=== PATIENT | female | born 1940 | race Caucasian/White ===

== ENCOUNTER 2016-12-02 12:35 | Inpatient (IN) | payer OTHER, MEDICARE ==
[2016-12-02 14:35] LABS: % IMMATURE GRANULYOCYTES 0.5 % (0.0-1.1); ABSOLUTE IMMATURE GRANULOCYTES 0.05 10^3/uL (0.00-0.10); ADD DIFF? NO; ADD MORPH? NO; ADD SCAN? NO; ATYPICAL LYMPHOCYTE FLAG 30 (0-99); FRAGMENT RBC FLAG 0 (0-99); HEMATOCRIT 52.4 % (38.0-47.0); HEMOGLOBIN 17.8 g/dL (12.6-16.3); LEFT SHIFT FLG 0 (0-99); LIPEMIA HEMOLYSIS FLAG 90 (0-99); MEAN CELL HEMOGLOBIN 31.7 pg (27.9-34.1); MEAN CELL VOLUME 93.2 fL (81.5-99.8); MEAN PLATELET VOLUME 9.9 fL (8.7-11.7); PLATELET CLUMPS FLAG 10 (0-99); PLATELET COUNT 356 10^3/uL (150-400); RED BLOOD CELL COUNT 5.62 10^6/uL (4.18-5.33); RED CELL DISTRIBUTION WIDTH 12.9 % (11.5-15.2)
[2016-12-02] MEDS ORDERED: NS 1,000 ML IV ONE (14:45)
--- NOTE | 2016-12-02 14:50 | EDPHY ---
HPI/HX/ROS/PE/MDM Narrative: CHIEF COMPLAINT: Weakness HPI: The patient is a 76-year-old female, who comes to the ED with acute weakness. According to the patient's daughter, the patient has been more weak than per usual. She does a lot of hard yard work, but has been too weak to work. Within the past few days the patient developed a left sided facial droop. Patient is unable to speak, she only answers "yeah" and "I don't know". Daughter attributes patient's symptoms to dehydration. She states the patient has decreased appetite lately, she has not been eating or drinking accordingly. There is no clear time of onset of any of her symptoms, and they have been present for at least several days. REVIEW OF SYSTEMS: ROS is limited, patient is unable to answer questions appropriately. PMH: Denies. SOCIAL HISTORY: Daughter at bedside. PHYSICAL EXAM: General: Patient is alert, Cachectic appearing. ENT: Eyes are normal to inspection. ENT inspection normal. Neck: Normal inspection. Full range of motion. Respiratory: No respiratory distress. Breath sounds normal bilaterally. Cardiovascular: Regular rate and rhythm. Strong peripheral pulses. Abdomen: The abdomen is nontender to palpation. There are no peritoneal signs. There are normal bowel sounds. Back: Normal to inspection. No tenderness to palpation. Skin: Normal color. No rash. Warm and dry. Extremities: Normal appearance. Full range of motion. Neuro: Left sided facial droop, No pronator drift, Only says "yeah" and "I don' t know", Not oriented to the year. Follows commands. ED Course: Patient presents with altered mental status for unknown amount of time. Patient has left sided facial droop. History and exam are limited, pt is unable to answer questions. Plan for CT head. I spoke with the radiologist, CT head reveals intracranial lesions consistent with metastases. 1530: I consulted Dr. Calvillo, Neurosurgery. 1540: I spoke to the hospitalist team, the patient will be admitted to Dr. Beltran. MRI brain ordered. MDM: This patient presents with facial droop, expressive aphasia and is unfortunately found to have at least two large brain masses with some edema and shift. She requires admission for further evaluation and treatment. I see no signs of sepsis, CVA, pneumonia, trauma or SDH. - Data Points Imaging Results: Imaging Impressions Head CT 12/02/16 14:31 Impression: Multiple cystic lesions consistent with metastases, with hemorrhage associated with the dominant right frontal lesion with moderate vasogenic edema and right to left midline shift. Findings discussed with Dr. Jac Robertson, on December 02, 2016 at 1521 hours. Imaging: Discussed imaging studies w/ outbound call center representative Radiologist, I viewed and interpreted images myself Laboratory Results: Laboratory Results 12/02/16 14:20 12/02/16 14:20 12/02/16 12/02/16 14:20 14:20 WBC 10.51 10^3/uL H 10^3/uL (3.80-9.50) RBC 5.62 10^6/uL H 10^6/uL (4.18-5.33) Hgb 17.8 g/dL H g/dL (12.6-16.3) Hct 52.4 % H % (38.0-47.0) MCV 93.2 fL fL (81.5-99.8) MCH 31.7 pg pg (27.9-34.1) MCHC 34.0 g/dL g/dL (32.4-36.7) RDW 12.9 % % (11.5-15.2) Plt Count 356 10^3/uL 10^3/uL (150-400) MPV 9.9 fL fL (8.7-11.7) Neut % (Auto) 76.2 % H % (39.3-74.2) Lymph % (Auto) 12.8 % L % (15.0-45.0) Wells % (Auto) 9.8 % % (4.5-13.0) Eos % (Auto) 0.3 % L % (0.6-7.6) Baso % (Auto) 0.4 % % (0.3-1.7) Nucleat RBC Rel Count 0.0 % % (0.0-0.2) Absolute Neuts (auto) 8.01 10^3/uL H 10^3/uL (1.70-6.50) Absolute Lymphs (auto) 1.35 10^3/uL 10^3/uL (1.00-3.00) Absolute Monos (auto) 1.03 10^3/uL H 10^3/uL (0.30-0.80) Absolute Eos (auto) 0.03 10^3/uL 10^3/uL (0.03-0.40) Absolute Basos (auto) 0.04 10^3/uL 10^3/uL (0.02-0.10) Absolute Nucleated RBC 0.00 10^3/uL 10^3/uL (0-0.01) Immature Gran % 0.5 % % (0.0-1.1) Immature Gran # 0.05 10^3/uL 10^3/uL (0.00-0.10) Sodium 139 mEq/L mEq/L (134-144) Potassium 4.8 mEq/L mEq/L (3.5-5.2) Chloride 105 mEq/L mEq/L (97-110) Carbon Dioxide 23 mEq/l mEq/l (22-31) Anion Gap 11 mEq/L mEq/L (8-16) BUN 13 mg/dL mg/dL (7-23) Creatinine 0.7 mg/dL mg/dL (0.6-1.0) Estimated GFR > 60 Glucose 105 mg/dL H mg/dL (70-100) Calcium 10.3 mg/dL mg/dL (8.5-10.4) Troponin I < 0.012 ng/mL ng/mL (0-0.034) Medications Given: Discontinued Medications Sodium Chloride (Ns) 1,000 mls @ 0 mls/hr IV EDNOW ONE; Wide Open PRN Reason: Protocol Stop: 12/02/16 14:46 Last Admin: 12/02/16 14:30 Dose: 1,000 mls General Time Seen by Provider: 12/02/16 14:30 Initial Vital Signs: Initial Vital Signs Temperature (C) 36.8 C 12/02/16 13:07 Heart Rate 110 H 12/02/16 13:07 Respiratory Rate 18 12/02/16 13:07 Blood Pressure 153/101 H 12/02/16 13:07 O2 Sat (%) 91 L 12/02/16 13:07 O2 Delivery Mode Nasal Cannula O2 (L/minute) 2 Allergies/Adverse Reactions: No Known Allergies Allergy (Verified 12/02/16 16:22) Home Medications: Medication Instructions Recorded NK [No Known Home Meds] 12/02/16 Departure - Departure Disposition: [facility] Inpatient Acute Clinical Impression: Intracranial space-occupying lesion on diagnostic imaging Condition: Serious Report Scribed for: Jac Robertson Report Scribed by: Niru Chen Date of Report: 12/02/16 Time of Report: 14:50 Physician Review and Approval Statement: Portions of this note were transcribed by a electromedical equipment technician. I personally performed the history, physical exam, and medical decision-making; and confirmed the accuracy of the information in the transcribed note.
[2016-12-02 14:53] LABS: ANION GAP 11 mEq/L (8-16); CALCIUM 10.3 mg/dL (8.5-10.4); CARBON DIOXIDE 23 mEq/l (22-31); CHLORIDE 105 mEq/L (97-110); CREATININE 0.7 mg/dL (0.6-1.0); GLOMERULAR FILTRATION RATE > 60; GLUCOSE 105 mg/dL (70-100); POTASSIUM 4.8 mEq/L (3.5-5.2); SODIUM 139 mEq/L (134-144)
[2016-12-02 15:06] LABS: TROPONIN I < 0.012 ng/mL (0-0.034)
--- NOTE | 2016-12-02 15:13 | CPEKG ---
Heart Rate: 109 RR Interval: 550 P-R Interval: 164 QRSD Interval: 128 QT Interval: 376 QTC Interval: 507 P [place]: 231 QRS [place]: -88 T Wave [place]: -39 EKG Severity - ABNORMAL ECG - EKG Impression: ECTOPIC ATRIAL TACHYCARDIA EKG Impression: VENTRICULAR PREMATURE COMPLEX EKG Impression: Probable PVCs, but cannot rule out aberrantly conducted beats EKG Impression: NONSPECIFIC IVCD WITH LAD EKG Impression: LEFT VENTRICULAR HYPERTROPHY EKG Impression: ANTERIOR INFARCT, Age-indeterminate EKG Impression: Left atrial abnormality EKG Impression: Possible P pulmonale EKG Impression: Right atrial enlargement Electronically Signed By: Erasmo Gilman 04-Dec-2016 11:03:55
[2016-12-02] MEDS ORDERED: DEXAMETHASONE 4 MG/ML VIAL IVP ONE (15:40)
[2016-12-02] MEDS ORDERED: ACETAMINOPHEN 650 MG SUPP PR PRN (15:54)
[2016-12-02] MEDS ORDERED: ONDANSETRON 4 MG/2 ML VIAL IVP PRN (15:54)
[2016-12-02] MEDS ORDERED: PROMETHAZINE HCL 25 MG/ML INJ IVP PRN (15:54)
[2016-12-02] MEDS ORDERED: IOPAMIDOL (ISOVUE-300) 100 ML BTL ONE (16:27)
[2016-12-02] MEDS ORDERED: GADOBUTROL 10 ML VIAL IVP ONE (17:15)
--- NOTE | 2016-12-02 17:17 | PDGENHP ---
History and Physical - Chief Complaint Acute aphasia - History of Present Illness primary care provider: None HPI: 76-year-old female presenting with acute aphasia characterized as inability to say any other words other than "yeah" or "I don't know" with associated generalized weakness, anorexia, facial droop located on the left side. Onset of symptoms was reportedly least 2 days ago and duration has been persistent thereafter. Patient otherwise denies any fever chills chest pain headache pain nausea vomiting hematochezia or melena. Her daughter reports this has resulted in her inability to do yd work and this is what made these symptoms particularly noticeable. She reports that otherwise the patient had been in her usual state of health. History Information - Allergies/Home Medication List Allergies/Adverse Reactions: No Known Allergies Allergy (Verified 12/02/16 16:22) Home Medications: NK [No Known Home Meds] 12/02/16 [Last Taken Unknown] I have personally reviewed and updated: family history, medical history, social history, surgical history - Past Medical History Additional medical history: Patient denies having had mammograms or screening colonoscopies - Surgical History Reports: no pertinent surgical hx - Family History Additional family history: patient denies any family history of colon cancer - Social History Smoking Status: Current every day smoker Alcohol Use: Other (denies any symptoms of withdrawal in the past) Drug Use: None Additional social history: lives with daughter in [place] Review of Systems ROS: 10pt was reviewed & negative except for what was stated in HPI & below Constitutional: Reports: weakness Neurological: Reports: other ( facial droop, aphasia) Physical Exam Temp Pulse Resp BP Pulse Ox 36.6 C 88 19 142/92 H 92 12/02/16 16:43 12/02/16 16:43 12/02/16 16:43 12/02/16 16:43 12/02/16 16:43 O2 (L/minute) 2 Constitutional: no apparent distress, not in pain, chronically ill appearing, cachectic Eyes: PERRL, anicteric sclera, EOMI Ears, Nose, Mouth, Throat: moist mucous membranes, other ( poor dentition) Cardiovascular: tachycardia, edema ( trace bilateral lower extremities), other ( frequent ectopy), No systolic murmur, No irregularly irregular Respiratory: other ( poor inspiratory and expiratory effort), No expiratory wheeze, No inspiratory crackles Gastrointestinal: normoactive bowel sounds, soft, non-tender abdomen, no palpable masses Genitourinary: no bladder fullness, no bladder tenderness Skin: other ( healing scar over right chest without any surrounding erythema) Musculoskeletal: full muscle strength, other ( proximal muscle wasting) Neurologic: sensation intact bilaterally, CN II-XII Intact ( with the exception of right jemima anopsia), facial droop ( left face), other ( verbal responses are limited to yes, no, this, yeah, I do not know), No weakness ( motor strength 5/ 5 bilaterally) Psychiatric: not anxious, other ( name is 0/3), No agitated Lymph, Heme, Immunologic: no supraclavicular LAD, other ( no axillary lymphadenopathy) Lab Data & Imaging Review 12/02/16 14:20 12/02/16 14:20 WBC 10.51 10^3/uL (3.80-9.50) H 12/02/16 14:20 RBC 5.62 10^6/uL (4.18-5.33) H 12/02/16 14:20 Hgb 17.8 g/dL (12.6-16.3) H 12/02/16 14:20 Hct 52.4 % (38.0-47.0) H 12/02/16 14:20 MCV 93.2 fL (81.5-99.8) 12/02/16 14:20 MCH 31.7 pg (27.9-34.1) 12/02/16 14:20 MCHC 34.0 g/dL (32.4-36.7) 12/02/16 14:20 RDW 12.9 % (11.5-15.2) 12/02/16 14:20 Plt Count 356 10^3/uL (150-400) 12/02/16 14:20 MPV 9.9 fL (8.7-11.7) 12/02/16 14:20 Neut % (Auto) 76.2 % (39.3-74.2) H 12/02/16 14:20 Lymph % (Auto) 12.8 % (15.0-45.0) L 12/02/16 14:20 Hayes % (Auto) 9.8 % (4.5-13.0) 12/02/16 14:20 Eos % (Auto) 0.3 % (0.6-7.6) L 12/02/16 14:20 Baso % (Auto) 0.4 % (0.3-1.7) 12/02/16 14:20 Nucleat RBC Rel Count 0.0 % (0.0-0.2) 12/02/16 14:20 Absolute Neuts (auto) 8.01 10^3/uL (1.70-6.50) H 12/02/16 14:20 Absolute Lymphs (auto) 1.35 10^3/uL (1.00-3.00) 12/02/16 14:20 Absolute Monos (auto) 1.03 10^3/uL (0.30-0.80) H 12/02/16 14:20 Absolute Eos (auto) 0.03 10^3/uL (0.03-0.40) 12/02/16 14:20 Absolute Basos (auto) 0.04 10^3/uL (0.02-0.10) 12/02/16 14:20 Absolute Nucleated RBC 0.00 10^3/uL (0-0.01) 12/02/16 14:20 Immature Gran % 0.5 % (0.0-1.1) 12/02/16 14:20 Immature Gran # 0.05 10^3/uL (0.00-0.10) 12/02/16 14:20 Sodium 139 mEq/L (134-144) 12/02/16 14:20 Potassium 4.8 mEq/L (3.5-5.2) 12/02/16 14:20 Chloride 105 mEq/L (97-110) 12/02/16 14:20 Carbon Dioxide 23 mEq/l (22-31) 12/02/16 14:20 Anion Gap 11 mEq/L (8-16) 12/02/16 14:20 BUN 13 mg/dL (7-23) 12/02/16 14:20 Creatinine 0.7 mg/dL (0.6-1.0) 12/02/16 14:20 Estimated GFR > 60 12/02/16 14:20 Glucose 105 mg/dL (70-100) H 12/02/16 14:20 Calcium 10.3 mg/dL (8.5-10.4) 12/02/16 14:20 Troponin I < 0.012 ng/mL (0-0.034) 12/02/16 14:20 Visualized and Interpreted EKG results: Yes EKG Interpretation: Positive for: other ( sinus arrhythmia with frequent PVCs, Q -wave in lead V3 to V4) Assessment & Plan Assessment: 76-year-old female presenting with acute expressive aphasia in the setting of new brain metastases Plan: 1. Expressive aphasia. Acute, secondary to brain metastases, patient seems to be following commands but having difficulty providing greater than 1 word responses with vocabulary limited to approximately 5-7 words -get speech therapy -will most likely require significant cognitive and speech rehab thereafter 2. Brain metastases. Acute, new problem this provider, further workup indicated. Present on noncontrast head CT imaging, will get MRI to further characterize as well as staging CT of abdomen chest and pelvis -will get oncology consultation for tomorrow to help patient and daughter understand further workup and possible treatment 3. Masses with vasogenic edema with midline shift. Secondary to brain mets, discussed with Dr. lAlen, he recommends IV steroids, prophylactic antiepileptic , nonsurgical management at this time, further imaging as outlined above 4. Tachycardia. Acute, new problem this provider, further workup indicated. Potentially secondary to hypovolemia, give normal saline and monitor on telemetry given her sinus arrhythmia, mild leukocytosis, high risk for pulmonary embolism given her likely underlying malignancy -get CT of chest, has already been performed with IV contrast, evaluate for pulmonary emboli Diet. 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 High risk patient, SCDs given hemorrhagic conversion of masses Code. Full at present, her daughter Vee is MDPOA, confirmed with patient Disposition. Anticipated discharge uncertain this time, anticipated length stay is greater than 48 hours and warranting inpatient admission status for newly diagnosed acute brain metastases with vasogenic edema and midline shift, requiring IV steroids, further workup and high risk of worsening morbidity and/ or mortality.
[2016-12-02] MEDS ORDERED: LORazepam 2 MG/ML INJ ONE (17:27)
[2016-12-02] MEDS ORDERED: LORazepam 2 MG/ML INJ IVP ONE (17:31)
--- NOTE | 2016-12-02 21:18 | GCON ---
[f rep st] CONSULTATION NEUROLOGICAL SURGERY CONSULTATION DATE OF CONSULTATION: 12/02/2016 TIME SEEN: 1600 hours. LOCATION: Emergency Room. CHIEF COMPLAINT: Weakness, expressive aphasia, and brain masses noted on CT. HOSPITAL COURSE/HISTORY/MAJOR MEDICAL FINDINGS: The patient is a 76-year-old female, who was brought into the emergency room for worsening weakness. According to the patient's daughter, who states that after doing a lot of yard work, the patient felt too weak. She also developed a left-sided facial droop and was having difficulty speaking. Her daughter thought that she was dehydrated due to working in the garden. Per the patient's daughter, she also has had a decreased appetite. The patient's daughter does state that the she has no prior history of any cancers. She has not had any unusual skin lesions. She is a former smoker, and has not smoked in the last few weeks. She would smoke approximately a half a pack to a pack a day. She drinks a glass of wine occasionally. REVIEW OF SYSTEMS: Negative other than what is stated in the HPI. It is somewhat difficult to obtain, as patient is unable to fully answer questions. PAST MEDICAL HISTORY: Per the patient's daughter, the patient has absolutely no past medical history, no medical conditions, no heart disease, kidney disease , or other issues, and she has never had surgery. FAMILY HISTORY: Per the patient's daughter, the patient does not have any past family history for cancer, diabetes, strokes, or heart disease. SOCIAL HISTORY: The patient presents today with her daughter. She recently stopped smoking half a pack to a pack per day. She does drink alcohol occasionally. ALLERGIES: No known drug allergies. MEDICATIONS: Home medications are none. The patient will occasionally take [employer] for aches and pains and calcium supplementation. PHYSICAL EXAMINATION: VITAL SIGNS: Blood pressure is 153/101, heart rate is 110, she is 91% on room air, temperature is 36.8. GENERAL: The patient is in no acute distress. NEUROLOGIC EXAMINATION: She does have profound expressive aphasia and is only able to follow simple commands. She is not able to follow complex commands such as EOMIs. The patient does track around the room appropriately. She does have a left-sided facial droop. She does squeeze bilaterally; her left side is weaker; approximately a 4/5 in her package delivery room service runner, biceps and triceps. On her right side , she has a 5/5 in her deltoids triceps biceps, wrist flexors, extensors, interossei, intrinsic package delivery room service runner. On the patient's right lower extremity, she has a 5 /5 with plantarflexion, dorsiflexion, hip flexion/extension, quads and hamstrings. In the left lower extremity, she has a 5-/5 in plantarflexion, dorsiflexion, hip flexors/extensors, quads and hamstrings. Sensation appears to be intact. However, patient again is not fully answering questions to report this appropriately. DIAGNOSTIC REVIEW: The patient underwent a head CT which demonstrates multicystic lesions consistent with metastasis and hemorrhage associated with the dominant right frontal lesion and moderate vasogenic edema with a right-to- left midline shift. There is a right frontal lobe lesion, a left posterior frontal lobe lesion, and numerous smaller lesions located in the right joshua and right cerebellum. ASSESSMENT AND PLAN: The patient is a 76-year-old female, who presented to the emergency room today with weakness and expressive aphasia, who has been found to have multiple brain masses. Discussion with daughter at bedside occurred today and in the ER as well. Discussed with the patient and the daughter at this time that we need to obtain some more information, including further imaging or her chest, abdomen and pelvis, as well as an MRI of her brain. Given her vasogenic edema seen on CT scan, would recommend starting Decadron 6 mg q.6. Would recommend, given her altered mental status, for and ICU level of care with q.1 hour neuro checks. Treatment plan from our standpoint would depend on the input from the Medicine and Oncology services once more information has been obtained. The patient was seen both by Dr. Allen and myself in the ER. If she has any change in neurologic or motor exam, please notify Neurosurgery. Will continue to follow. /[id number]/MODL MTDD
[2016-12-02] MEDS: NS 1,000 ML IV SCH (22:01)
[2016-12-02] MEDS: DEXAMETHASONE 4 MG/ML VIAL IVP SCH (22:02)
[2016-12-02] MEDS: levETIRAcetam 750 MG in NS 100 ML IV SCH (22:03)
[2016-12-03] MEDS: DEXAMETHASONE 4 MG/ML VIAL IVP SCH ×4 (03:34→21:23)
[2016-12-03 04:59] LABS: % IMMATURE GRANULYOCYTES 0.6 % (0.0-1.1); ABSOLUTE IMMATURE GRANULOCYTES 0.03 10^3/uL (0.00-0.10); ADD DIFF? NO; ADD MORPH? NO; ADD SCAN? NO; ATYPICAL LYMPHOCYTE FLAG 30 (0-99); FRAGMENT RBC FLAG 0 (0-99); HEMATOCRIT 43.3 % (38.0-47.0); HEMOGLOBIN 14.5 g/dL (12.6-16.3); LEFT SHIFT FLG 0 (0-99); LIPEMIA HEMOLYSIS FLAG 80 (0-99); MEAN CELL HEMOGLOBIN 31.2 pg (27.9-34.1); MEAN CELL HEMOGLOBIN CONCENTR. 33.5 g/dL (32.4-36.7); MEAN CELL VOLUME 93.1 fL (81.5-99.8); MEAN PLATELET VOLUME 9.8 fL (8.7-11.7); PLATELET CLUMPS FLAG 0 (0-99); PLATELET COUNT 276 10^3/uL (150-400); RED BLOOD CELL COUNT 4.65 10^6/uL (4.18-5.33); RED CELL DISTRIBUTION WIDTH 12.7 % (11.5-15.2)
[2016-12-03 05:22] LABS: ALANINE AMINOTRANSFERASE 29 IU/L (9-52); ALBUMIN 2.7 g/dL (3.5-5.0); ALKALINE PHOSPHATASE 78 IU/L (38-126); ANION GAP 8 mEq/L (8-16); ASPARTATE AMINOTRANSFERASE 24 IU/L (14-46); BILIRUBIN,TOTAL 0.5 mg/dL (0.1-1.4); CALCIUM 8.6 mg/dL (8.5-10.4); CARBON DIOXIDE 22 mEq/l (22-31); CHLORIDE 110 mEq/L (97-110); CREATININE 0.5 mg/dL (0.6-1.0); GLOMERULAR FILTRATION RATE > 60; GLUCOSE 124 mg/dL (70-100); POTASSIUM 4.3 mEq/L (3.5-5.2); SODIUM 140 mEq/L (134-144); TOTAL PROTEIN 5.3 g/dL (6.3-8.2)
[2016-12-03] MEDS: NS 1,000 ML IV SCH ×2 (07:20→21:22)
[2016-12-03] MEDS: levETIRAcetam 750 MG in NS 100 ML IV SCH ×2 (08:42→21:23)
--- NOTE | 2016-12-03 09:09 | NEUSURGPN ---
Assessment/Plan: Maricel is a 76 y/o female with multiple brain and lung masses. The largest brain mass on the right is approximately 5cm with vasogenic edema and midline shift. Discussed MRI and CT findings with patient daughter Vee this morning. Given the size of the right frontal mass and the midline shift would recommended a right sided craniotomy for mass debulking/resection. Surgical planning for tomorrow afternoon. Have also recommended a lung biopsy with IR today fro tissues diagnosis to determine pathology. Continue Decadron, patient following commands more robustly this am, speech slightly improved. Still with significant expressive aphasia. Continue Keppra for seizure prophx Discussed with Dr. Allen. Please notify NS with any change in neuro/motor exam. Subjective: Unable to fully obtain Objective: NAD, left sided facial droop, expressive aphasia. EOMI, PERRLA Left UE 3/5, LLE 5-/5, RUE and RLE 5/5 - Physician Discussed Patient with Dr.: Allen Neurosurgery Physical Exam - Vitals, I&O, Labs I and O 12/02/16 12/03/16 12/04/16 05:59 05:59 05:59 Intake Total 1912 Balance 1912 Weight 41.816 kg Intake: IV Infused (ml) 1912 Ns 1,000 ml @ 150 mls/hr 813 IV CONT TAMIKO Rx#: [id number] levETIRAcetam 750 mg In 100 Ns 100 ml @ 420 mls/hr IV BID TAMIKO Rx#:[id number] Other: Number of Voids 0 Incontinence 1 Vital Signs Temp Pulse Resp BP Pulse Ox 36.6 C 92 20 142/88 H 93 12/03/16 08:28 12/03/16 08:28 12/03/16 08:28 12/03/16 08:28 12/03/16 08:28 Laboratory Results 12/03/16 04:30 12/03/16 04:30 ICD10 Worksheet Patient Problems: Problems Problem Status Onset Intracranial space-occupying lesion on diagnostic imaging Acute
[2016-12-03 09:47] LABS: PROTIME(PATIENT) 13.1 SEC (12.0-15.0)
[2016-12-03 09:48] LABS: APTT 42.1 SEC (23.0-38.0)
--- NOTE | 2016-12-03 11:04 | PDANEPAE ---
ANE History of Present Illness IR lung biopsy ANE Past Medical History - Cardiovascular History Hx Hypertension: No Hx Arrhythmias: No Hx Chest Pain: No Hx Coronary Artery / Peripheral Vascular Disease: No Hx CHF / Valvular Disease: No Hx Palpitations: No - Pulmonary History Hx COPD: No Hx Asthma/Reactive Airway Disease: No Hx Recent Upper Respiratory Infection: No Hx Oxygen in Use at Home: No Hx Sleep Apnea: No - Endocrine History Hx Diabetes: No - Renal History Hx Renal Disorders: No - Liver History Hx Hepatic Disorders: No - Cancer History Hx Cancer: Yes - Chronic Pain History Chronic Pain: Yes ANE Review of Systems - Exercise capacity Exercise capacity: <4 METS ANE Patient History - Allergies Allergies/Adverse Reactions: No Known Allergies Allergy (Verified 12/02/16 16:22) - Home Medications Home Medications: NK [No Known Home Meds] 12/02/16 [Last Taken Unknown] - Anes Hx Hx Anesthesia Complications (with details): no prior anesthetics - Smoking Hx Smoking Status: Current every day smoker - Alcohol Use Alcohol Use: Other (denies any symptoms of withdrawal in the past) ANE Labs/Vital Signs - Labs Result Diagrams: 12/03/16 04:30 12/03/16 04:30 - Vital Signs Blood Pressure: 142/88 Heart Rate: 92 Respiratory Rate: 20 O2 Sat (%): 93 Height: 170.18 cm Weight: 41.816 kg ANE Physical Exam - Airway Mallampati Score: Class 2 - Pulmonary Pulmonary: no respiratory distress - Cardiovascular Cardiovascular: regular rate and rhythym - ASA Status ASA Status: II ANE Anesthesia Plan Anesthesia Plan: GA with mask, MAC
[2016-12-03] MEDS ORDERED: LIDOCAINE 2% 5 ML SDV ONE (11:05)
[2016-12-03] MEDS ORDERED: PROPOFOL/EMULSION 500 MG/50 ML BOTTLE IV ONE (11:05)
[2016-12-03] MEDS ORDERED: ALBUTEROL 3 ML DEYVIAL IH PRN (12:47)
[2016-12-03] MEDS ORDERED: NALOXONE HCL 0.4 MG/ML INJ IVP PRN (12:47)
--- NOTE | 2016-12-03 12:48 | POSTANESTH ---
Post Anesthetic Evaluation Cardiovascular Status: Normal, Stable, Similar to Pre-Op Cond Respiratory Status: Normal, Stable, Similar to Pre-op Cond. Level of Consciousness/Mental Status: Mildly Sleepy, Arousable Pain Control: Adequate, Prn Tx Ordered Nausea/Vomiting Control: Adequate, Prn Tx Ordered Complications Possibly Related to Anesthesia: None Noted
--- NOTE | 2016-12-03 13:07 | POSTOPPROG ---
Post Op Note Date of Operation: 12/03/16 Surgeon: Guillermo Goss Franchise Manager: None Anesthesiologist: Jerman Anesthesia: Other (Specify) (MAC) Pre-op Diagnosis: Lung mass Post-op Diagnosis: Same Indication: Tissue diagnosis needed Procedure: CT-guided lung biopsy Findings: See dictated report Inf/Abcess present in the surg proc area at time of surgery?: No EBL: Minimal Complications: No immediate
--- NOTE | 2016-12-03 14:28 | HOSPPROG ---
Hospitalist Progress Note Assessment/Plan: #Acute encephalopathy: due to brain lesions. IV steroids -Large right mass with edema contributing. 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 Lung biopsy today. Concerning that masses encasing lobes and pulm arteries. No e/o SVC syndrome #Cachexia: suspected malignancy and decreased PO per daughter. Check prealb #Aphasia: due to brain lesions #Tachycardia: Likely hypovolemic with hx of decreased PO. Consider PE; will CTA if not improved #Goals: I had very lengthy and cam conversation with daughter (med proxy). We discussed options such as surgery, chemo vs hospice. Given poor performance score, she has poor prognosis despite chemo. Discussed case with Dr. Nath and Dr. Bell. Will readdress with daughter in [facility] Time spent on visit: 60min counseling daughter on treatment vs. hospice and discussing case with Dr. Nath and Dr. Bell Subjective: still confused Objective: Vital Signs Temp Pulse Resp BP Pulse Ox 36.6 C 107 H 23 H 145/109 H 94 12/03/16 13:55 12/03/16 11:21 12/03/16 13:46 12/03/16 13:45 12/03/16 13:55 Laboratory Results 12/03/16 04:30 12/03/16 04:30 12/02/16 12/03/16 12/04/16 05:59 05:59 05:59 Intake Total 1913 500 Balance 1913 500 PT 13.1 SEC (12.0-15.0) 12/03/16 09:26 INR 1.00 (0.83-1.16) 12/03/16 09:26 - Physical Exam Constitutional: cachectic (severe) Eyes: PERRL Ears, Nose, Mouth, Throat: dry mucous membranes Cardiovascular: tachycardia, No edema Respiratory: no respiratory distress, other (no neck or arm swelling indicative of SVC syndrome) Gastrointestinal: normoactive bowel sounds, soft, non-tender abdomen Skin: warm Musculoskeletal: full muscle strength Neurologic: other (aphasic "no, no" to most questions) Psychiatric: encephalopathic ICD10 Worksheet Patient Problems: Problems Problem Status Onset Intracranial space-occupying lesion on diagnostic imaging Acute
--- NOTE | 2016-12-03 22:22 | GCON ---
[f rep st] CONSULTATION NEW PATIENT CONSULTATION CONSULTING PHYSICIAN: Lana Lance MD REASON FOR CONSULTATION: Newly discovered brain metastases with large right upper lobe mass. HISTORY OF PRESENT ILLNESS: History was taken from chart. Daughter not at bedside and patient is essentially nonverbal, occasionally answering in 1 word sentences. Notably, she just went down to Interventional Radiology for a CT- guided biopsy of right upper lobe lung mass. This patient is a 76-year-old woman presenting with acute aphasia characterized by inability to say any other words other than "yeah" or "I don't know." Daughter reports generalized weakness, anorexia, facial droop located on left side. Daughter reports onset of the symptoms was about 2 days ago and duration has been persistent. She reports fevers, chills, headache, pain, nausea, vomiting, hematochezia, or melena. Apparently, patient was doing yard work more frequently but it does appear she has lost a lot of weight. She lives with her daughter and her daughter reports she has been in her usual state of health. PAST MEDICAL HISTORY: Patient denies previous mammograms or colonoscopies. No pertinent surgical history. FAMILY HISTORY: No history of colon cancer. SOCIAL HISTORY: Smoking history: Current every day smoker. No alcohol use. No recreational drugs. Lives with daughter in [place]. REVIEW OF SYSTEMS: Unable to be obtained. PHYSICAL EXAMINATION: VITAL SIGNS: Currently show blood pressure 147/109, pulse of 110, O2 saturation 91% on 5 L nasal cannula, temp is 36.4. GENERAL: Patient is elderly, not in acute distress, but looks like she has lost weight recently, chronically ill appearing. HEENT: Anicteric. Pupils equal, round, and reactive to light and accommodation. She is not really participating in eye exam to evaluate extraocular muscle movement. CARDIOVASCULAR: Tachycardic. No significant edema. RESPIRATORY: Occasional rhonchi heard anteriorly. Patient will not sit up after her recent procedure. GASTROINTESTINAL: Soft, nontender. Bowel sounds positive. LOWER EXTREMITIES: No edema. NEUROLOGIC: Looks like she has facial droop on the left and dysphagia. She is moving all extremities, but again, difficult to get her to follow commands. LABORATORY AND X-RAY DATA: Labs today show white blood cell count of 5.38, hemoglobin 14.5, hematocrit 43.3, platelet count of 276,000. Her CMP shows normal LFTs. Albumin 2.7. TSH 0.375. Total protein 5.3. INR was 1.0. Her imaging reports included a CT head, which was concerning for brain metastases. She went on to have a brain MRI yesterday, 12/02/2016, showing extensive intracranial metastatic disease and largest lesion in right frontal location with vasogenic edema and slight midline shift with mass effect on the lateral ventricle. Many of larger lesions demonstrate susceptibility artifact compatible with hemorrhagic component. Additionally, there is a 2.4 cm metastatic lesion within the right side of the brainstem at the level of the joshua and the cerebellar peduncle. CT of her abdomen shows no evidence of abdominal or pelvic metastases or primary masses. Her CT of her chest showed mediastinal and right hilar metastatic adenopathy encasing and narrowing the right upper middle and lower lobe pulmonary arteries. The right upper lobe demonstrates 2 irregular solid masses with the largest measuring 4 x 3.2 cm probably representing primary bronchogenic carcinoma. Severe central lobular emphysema was noted. Her CT-guided biopsy of right upper lobe is pending currently. IMPRESSION/PLAN: This is a 76-year-old woman with the above-stated past medical history, who presents with aphasia and altered mental status, ultimately found to have multiple brain metastases with a very large hemorrhagic frontal lobe mass. In addition, she has a 2 cm brain stem lesion. After review of CT chest, abdomen, and pelvis, this is likely a primary lung, I would guess small-cell lung cancer given central location and the fact that the lesions in the brain are hemorrhagic. Concerning is the incasement of the pulmonary arteries of the right upper lobe. I have reviewed the imaging myself. Unfortunately, the daughter (Vee) was not in the room today but we were able to discuss by phone The patient's performance status is approximately 3-4 at this time due to cancer Although we may see a dramatic response to therapy if this is small-cell lung cancer, my concern is her systemic treatment will need to be delayed while dealing with large [employer] lesion; whether or not she will tolerate craniotomy is questionable. This certainly has high morbidity associated w it. Furthermore, small-cell lung cancer is highly sensitive to treatment but the prognosis is poor and generally recurs within a year. I agree the only way to deal with the large frontal lobe lesion is by surgical resection if being aggressive. Again, this will delay any sort of systemic therapy we are able to give and I am very concerned about the incasement of pulmonary arteries causing worsening disease. Complicating the picture is the fact that she has a brain stem lesion and certainly this has the potential to bleed either with or without treatment possibly causing paralysis. The daughter would like to think about things. We discussed future chemotherapy based on pathology. Side effects include but not limited to myelosuppression, nausea, vomiting, fatigue, alopecia, etc. Certainly, palliative approach would be a very valid option at this time. [employer] lesions will need to be dealt with before any chemotherapy if daughter wants treatment as this is most life threatening and I would not expect chemo to have significant effect on brain lesions given blood-brain barrier. Will continue to discuss. Plan to meet daughter in the morning /[id number]/MODL LIANA
[2016-12-04] MEDS: DEXAMETHASONE 4 MG/ML VIAL IVP SCH ×4 (02:49→21:58)
[2016-12-04 02:53] LABS: HEMATOCRIT 49.5 % (38.0-47.0); HEMOGLOBIN 16.8 g/dL (12.6-16.3); MEAN CELL HEMOGLOBIN 31.6 pg (27.9-34.1); MEAN CELL HEMOGLOBIN CONCENTR. 33.9 g/dL (32.4-36.7); RED BLOOD CELL COUNT 5.32 10^6/uL (4.18-5.33); RED CELL DISTRIBUTION WIDTH 12.8 % (11.5-15.2)
[2016-12-04 04:30] LABS: ANION GAP 13 mEq/L (8-16); CALCIUM 9.5 mg/dL (8.5-10.4); CARBON DIOXIDE 20 mEq/l (22-31); CHLORIDE 107 mEq/L (97-110); CREATININE 0.6 mg/dL (0.6-1.0); GLOMERULAR FILTRATION RATE > 60; GLUCOSE 145 mg/dL (70-100); POTASSIUM 4.6 mEq/L (3.5-5.2); SODIUM 140 mEq/L (134-144)
[2016-12-04] MEDS: levETIRAcetam 750 MG in NS 100 ML IV SCH ×2 (08:09→21:58)
[2016-12-04] MEDS: NS 1,000 ML IV SCH ×2 (08:09→22:09)
--- NOTE | 2016-12-04 08:19 | NEUSURGPN ---
Assessment/Plan: Maricel is a 76 y/o female with multiple brain and lung masses. The largest brain mass on the right is approximately 5cm with vasogenic edema and midline shift. -Was scheduled for right sided craniotomy for tumor resection later today, after family met with oncology this am, they have decided against surgical treatment -MRI and surgery canceled for today -Will defer to medicine/onc for treatment plan -We will sign off for now, please let Neurosurgery know if/when you would like us back on board Subjective: Unable to obtain Objective: NAD left sided facial droop expressive aphasia EOMI PERRLA Left UE 3/5, LLE 5-/5, RUE and RLE 5/5 Neuro Check Frequency: per routine Urinary Catheter in Place: No Catheter Insertion Date: 12/03/16 - Physician Discussed Patient with : [facility] Physical Exam - Vitals, I&O, Labs I and O 12/03/16 12/04/16 12/05/16 05:59 05:59 05:59 Intake Total 191 1537 Output Total 1175 Balance 1913 362 Weight 41.816 kg 41.816 kg Intake: IV Intake (ml) 500 IV Infused (ml) 191 1037 Ns 1,000 ml @ 150 mls/hr 813 937 IV CONT TAMIKO Rx#: [id number] levETIRAcetam 750 mg In 100 100 Ns 100 ml @ 420 mls/hr IV BID TAMIKO Rx#:[id number] Output: Urine (ml) 1175 Catheter 1175 Other: Number of Voids 0 Incontinence 1 1 Vital Signs Temp Pulse Resp BP Pulse Ox 36.5 C 103 H 20 141/95 H 91 L 12/04/16 07:21 12/04/16 07:21 12/04/16 07:21 12/04/16 07:21 12/04/16 07:21 Laboratory Results 12/04/16 02:40 12/04/16 02:40 ICD10 Worksheet Patient Problems: Problems Problem Status Onset Intracranial space-occupying lesion on diagnostic imaging Acute
--- NOTE | 2016-12-04 10:29 | HOSPPROG ---
Hospitalist Progress Note Assessment/Plan: #Acute encephalopathy: large right mass with multiple small lesions. Daughter has decided no resection. Cont IV steroids and see if responds. Considering whole-brain radiation #Lung masses: suspect SCC. Lung biopsy 12/03. Concerning that masses encasing lobes and pulm arteries. 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 Consider PE; will CTA if not improved #Agitation: low-dose Seroquel. Monitor Qtc #Goals: met with daughter, her friend and Dr. Bell. We discussed options such as surgery, chemo vs hospice. All agreed surgery is not good option. Cont IV steroids. Explained hospice since daughter says mom doesn't want to be in hospital Time spent on visit: 40 min counseling daughter on treatment vs. hospice and discussing case with Dr. Victoria and Dr. Bell Subjective: no acute events Objective: Vital Signs Temp Pulse Resp BP Pulse Ox 36.5 C 103 H 20 141/95 H 91 L 12/04/16 07:21 12/04/16 07:21 12/04/16 07:21 12/04/16 07:21 12/04/16 07:21 Laboratory Results 12/04/16 02:40 12/04/16 02:40 12/03/16 12/04/16 12/05/16 05:59 05:59 05:59 Intake Total 1913 1537 Output Total 1175 Balance 1913 362 PT 13.1 SEC (12.0-15.0) 12/03/16 09:26 INR 1.00 (0.83-1.16) 12/03/16 09:26 - Physical Exam Constitutional: cachectic Eyes: PERRL Ears, Nose, Mouth, Throat: moist mucous membranes, hearing normal Cardiovascular: regular rate and rhythym, tachycardia Respiratory: no respiratory distress Gastrointestinal: normoactive bowel sounds, soft, non-tender abdomen Genitourinary: robles in urethra Musculoskeletal: generalized weakness Neurologic: other (alert. Not oriented. Says yes to every ) Psychiatric: encephalopathic ICD10 Worksheet Patient Problems: Problems Problem Status Onset Intracranial space-occupying lesion on diagnostic imaging Acute
--- NOTE | 2016-12-04 10:42 | SOAPPROG ---
SOAP Progress Note Assessment/Plan: Assessment/Plan: 76 yo woman admitted w aphasia/AMS discovered to have large frontal lobe mass and large RUL central lung mass 1. AMS/encephalopathy - due to large hemorrhagic frontal lobe mass w midline shift cont steroids and anti-seizure meds mentation about the same today 2. Lung mass - likely extensive stage SCLC path pending from Bx yesterday overall poor prognosis w symptomatic brain mets discussed for over 45 min w pt and friend also discussed case w Dr Allen w [facility] [place] and [place] Abernathy from [facility] Favor against craniotomy given associated morbidity and lack of curable disease recommend cont trial of steroids and possibly repeating imaging later in week If response and swelling decreased (and IF small cell confirmed), potential for WBXRT to treat [employer]VELING STORE[employer]PER disease Could consider chemotherapy for systemic disease thereafter but feel likelihood is low If no response to steroids, hospice is appropriate Palliative care consulted Pt's daughter agrees 3. Delerium - 2/2 encephalopathy + steroids consider seroquel, etc will defer to IM 12/04/16 10:39 12/04/16 10:42 12/04/16 10:47 12/04/16 10:49 Subjective: No sig change overnight AMS continues Objective: Vital Signs Temp Pulse Resp BP Pulse Ox 36.5 C 103 H 20 141/95 H 91 L 12/04/16 07:21 12/04/16 07:21 12/04/16 07:21 12/04/16 07:21 12/04/16 07:21 Laboratory Results 12/04/16 02:40 12/04/16 02:40 12/03/16 12/04/16 12/05/16 05:59 05:59 05:59 Intake Total 1913 1537 Output Total 1175 Balance 1913 362 PT 13.1 SEC (12.0-15.0) 12/03/16 09:26 INR 1.00 (0.83-1.16) 12/03/16 09:26 Gen - NAD but not following most commands HEENT - anicteric, PERRLA CV - RRR Lungs - CTA anteriorly Abd - soft, NT, BS+ Ext - no edema Neuro - not following commands, respomds to all q's w "yea" ICD10 Worksheet Patient Problems: Problems Problem Status Onset Intracranial space-occupying lesion on diagnostic imaging Acute
[2016-12-04] MEDS ORDERED: ceFAZolin 2 GM/DEXTROSE 100 ML IV ONE (15:00)
--- NOTE | 2016-12-04 16:26 | PDPCPN ---
Palliative Care Progress Note Assessment/Plan: Referring provider: Dr Lance Reason for consult: Complex medical decision making Symptom control HPI: Paulina Gusman is a 76 yo female with no sig medical history admitted to the hospital for aphasia and weakness. Found to have large brain mass with edema, started on steroids and neurosurg consulted. 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 Oncology consulted s/p biopsy, awaiting results. Daughter decided against surgical resection of mass. Palliative care consulted for complex medical decision making. Briefly spoke with her daughter inside of the room. She states she does not have any questions and does not need to speak with the palliative care team. She is awaiting the biopsy results and any future possible plans with oncology. Oncology and hospitalist spoke of hospice care this morning but is not what she wants right now. Gave her our phone number for future reference if she chooses. Assessment: Physical: - Pain: appears comfortable -tylenol PRN - weakness - nursing support - PT/OT Emotional/psychological: Acute encephalopathy with agitation at times - low stimulation - maintain normal routines as much as possible - haldol or zyprexa low dose PRN for any acute agitation Advanced Care Planning: Is patient decisional?: No Code Status: Full MD POA: daughter is decision maker though no paperwork on file Plan: Awaiting biopsy and future plans with oncology. Please call if palliative care is needed again otherwise will sign off. Subjective: sometimes states yes or no Objective: Social History: Lives with daughter. Enjoys gardening. Medication list reviewed ROS: General: fatigue, weakness, weight loss ENT: dysphagia Resp: negative GI: poor appetite : negative MS: negative Skin: negative Neuro: aphasia Psych: anxious at times Functional assessment: PPS: 30% Functional status: dependent on ADLs, IADLs Vital Signs Temp Pulse Resp BP Pulse Ox 36.4 C 106 H 18 155/97 H 91 L 12/04/16 15:27 12/04/16 15:27 12/04/16 15:27 12/04/16 15:27 12/04/16 15:27 Laboratory Results 12/04/16 02:40 12/04/16 02:40 12/03/16 12/04/16 12/05/16 05:59 05:59 05:59 Intake Total 1913 1537 Output Total 1175 1200 Balance 1913 362 -1200 PT 13.1 SEC (12.0-15.0) 12/03/16 09:26 INR 1.00 (0.83-1.16) 12/03/16 09:26 Physical Exam - Physical Exam General Appearance: alert, no apparent distress Respiratory: No respiratory distress, No accessory muscle use Skin: normal color, warm/dry Extremities: No pedal edema Neuro/Psych: alert, speech abnormalities (sometimes states yes or no), disoriented to person, disoriented to place, disoriented to time ICD10 Worksheet Patient Problems: Problems Problem Status Onset Intracranial space-occupying lesion on diagnostic imaging Acute Palliative care encounter Acute - ICD10 Problem Qualifiers (1) Palliative care encounter
[2016-12-04] MEDS ORDERED: OLANZapine DISINTEGR 5 MG TAB PO PRN (17:18)
[2016-12-05] MEDS ORDERED: OLANZapine 2.5 MG TAB PO PRN (03:32)
[2016-12-05] MEDS: DEXAMETHASONE 4 MG/ML VIAL IVP SCH ×4 (03:36→21:21)
[2016-12-05] MEDS ORDERED: OLANZapine DISINTEGR 5 MG TAB PO PRN (03:55)
[2016-12-05] MEDS: levETIRAcetam 750 MG in NS 100 ML IV SCH ×2 (07:40→21:21)
--- NOTE | 2016-12-05 08:56 | HOSPPROG ---
Hospitalist Progress Note Assessment/Plan: #Acute encephalopathy: worse today. Large right mass with multiple small lesions. Daughter has decided no resection. Cont IV steroids. No surgery with high-risk mortality #Agitation: cont Zyprexa. Daughter wants robles pulled. Add roller belt #Lung masses: suspect SCC. Lung biopsy 12/03. Concerning that masses encasing lobes and pulm arteries. No e/o SVC syndrome # #Cachexia of malignancy: pre-alb 12 #Aphasia: due to brain lesions #Tachycardia/hypertension: due to agitation #Agitation: low-dose Seroquel. Monitor Qtc #Goals: met with daughter, her friend. Do not recommend further interventions with high mortality. Goal is take mother home. Hospice will meet with daughter today. Broached cor status, stating <1% surviving. Daughter wants to think over Time spent: 50 min counseling daughter on treatment vs. hospice Subjective: agitated and up all night Objective: Vital Signs Temp Pulse Resp BP Pulse Ox 36.5 C 120 H 20 165/107 H 93 12/05/16 07:37 12/05/16 07:37 12/05/16 07:37 12/05/16 07:37 12/05/16 07:37 Laboratory Results 12/04/16 02:40 12/04/16 02:40 12/04/16 12/05/16 12/06/16 05:59 05:59 05:59 Intake Total 1537 2218 Output Total 1175 1800 Balance 362 418 PT 13.1 SEC (12.0-15.0) 12/03/16 09:26 INR 1.00 (0.83-1.16) 12/03/16 09:26 - Physical Exam Constitutional: no apparent distress, cachectic Eyes: PERRL Ears, Nose, Mouth, Throat: dry mucous membranes Cardiovascular: regular rate and rhythym Respiratory: no respiratory distress, no rales or rhonchi Gastrointestinal: normoactive bowel sounds, soft, non-tender abdomen Genitourinary: no bladder fullness, robles in urethra Skin: warm Psychiatric: encephalopathic, anxious, other (agitated. Pulling at all tubes, restless in bed. Only says "yes, yes" to any question asked) ICD10 Worksheet Patient Problems: Problems Problem Status Onset Intracranial space-occupying lesion on diagnostic imaging Acute Palliative care encounter Acute
[2016-12-05] MEDS: NS 1,000 ML IV SCH (09:54)
--- NOTE | 2016-12-05 14:06 | SOAPPROG ---
SOAP Progress Note Assessment/Plan: Assessment/Plan: 76 yo woman admitted w aphasia/AMS discovered to have large frontal lobe mass and large RUL central lung mass 1. AMS/encephalopathy - due to large hemorrhagic frontal lobe mass w midline shift cont steroids and anti-seizure meds for now mentation worse today recommended hopice and will get consult today 2. Lung mass - likely extensive stage SCLC path nondiagnostic unfortunately but does not change overall plan overall poor prognosis w symptomatic brain mets and RUL mass w pulm artery compromise Cannot radiate brain mass due to edema/shift craniotomy not recommended given associated morbidity Without chemotherapy, systemic disease will worsen Brain lesion most life threatening ath this time discussed for over 45 min w pt and friend No treatment recommended Pt now DNR 3. Delerium - 2/2 encephalopathy + steroids on olanzapine Appreciate Dr Lance 12/05/16 14:03 Subjective: Doing worse neurologically Objective: Vital Signs Temp Pulse Resp BP Pulse Ox 36.4 C 115 H 18 154/108 H 97 12/05/16 11:03 12/05/16 13:28 12/05/16 13:28 12/05/16 11:03 12/05/16 13:28 Laboratory Results 12/04/16 02:40 12/04/16 02:40 12/04/16 12/05/16 12/06/16 05:59 05:59 05:59 Intake Total 1537 2218 Output Total 1175 1800 1200 Balance 362 418 -1200 PT 13.1 SEC (12.0-15.0) 12/03/16 09:26 INR 1.00 (0.83-1.16) 12/03/16 09:26 aggitated not responding to Q's nonverbal following some commands ICD10 Worksheet Patient Problems: Problems Problem Status Onset Intracranial space-occupying lesion on diagnostic imaging Acute Palliative care encounter Acute
[2016-12-05] MEDS ORDERED: HALOPERIDOL LACT 5 MG/ML INJ IVP PRN (16:38)
[2016-12-06 05:22] LABS: ANION GAP 10 mEq/L (8-16); CALCIUM 9.4 mg/dL (8.5-10.4); CARBON DIOXIDE 23 mEq/l (22-31); CHLORIDE 107 mEq/L (97-110); CREATININE 0.5 mg/dL (0.6-1.0); GLOMERULAR FILTRATION RATE > 60; GLUCOSE 111 mg/dL (70-100); POTASSIUM 4.2 mEq/L (3.5-5.2); SODIUM 140 mEq/L (134-144)
[2016-12-06 05:34] LABS: HEMATOCRIT 50.6 % (38.0-47.0); HEMOGLOBIN 16.9 g/dL (12.6-16.3); MEAN CELL HEMOGLOBIN 31.9 pg (27.9-34.1); MEAN CELL HEMOGLOBIN CONCENTR. 33.4 g/dL (32.4-36.7); MEAN CELL VOLUME 95.7 fL (81.5-99.8); RED BLOOD CELL COUNT 5.29 10^6/uL (4.18-5.33); RED CELL DISTRIBUTION WIDTH 12.8 % (11.5-15.2)
[2016-12-06] MEDS: DEXAMETHASONE 4 MG/ML VIAL IVP SCH ×3 (06:39→15:39)
[2016-12-06] MEDS: levETIRAcetam 750 MG in NS 100 ML IV SCH (09:27)
[2016-12-06 10:34] VITALS: BP 130/86; PULSE 81; RESP 18; TEMP 96.2; O2SAT 84
--- NOTE | 2016-12-06 13:35 | PDIAF ---
- Diagnosis Diagnosis: lung cancer with brain metastasis Code Status: Do Not Resuscitate - Medication Management Discharge Medications: Medications to Continue on Transfer levETIRAcetam [Keppra 500 mg (*)] 500 mg PO BID #60 tab 12/06/16 [Last Taken Unknown] Discharge Medications: Refer to the Discharge Home Medication list for PRN reason. - Orders Services needed: Home Care, Registered Nurse Home Care Face to Face: I certify that this patient was under my care and that I had the required [id number] encounter meeting the encounter requirements on the discharge day. My findings support the fact that the patient is homebound as defined in CMS Chapter 7 Medicare Benefits Manual 30.1.1, The condition of the patient is such that there exists a normal inability to leave home and consequently, leaving home would require a considerable and taxing effort. Diet Recommendation: no restrictions on diet Diet Texture: Regular Texture Diet - Follow Up Care Current Providers and Referrals: NONE *PRIMARY CARE P,. [Primary Care Provider] - As per Instructions
--- NOTE | 2016-12-07 00:06 | GDS ---
[f rep st] DISCHARGE SUMMARY DISCHARGE DIAGNOSES: 1. Acute encephalopathy due to below. 2. Brain metastasis with multiple cystic lesions, consistent with metastatic disease and a dominant right frontal lesion with moderate vasogenic edema and [id number] midline shift. 3. Lung cancer. Suspect squamous cell carcinoma. 4. Cachexia of malignancy. 5. Aphasia. 6. Agitation. CONSULTANTS: 1. [facility] [place]. 2. Stephanie Bell MD, of [facility]. 3. Hospice and Palliative Care. HOSPITAL COURSE BY PROBLEM: Lung cancer, with large brain metastasis, presenting with acute aphasia and encephalopathy: The patient was admitted to the hospital where she was seen by both Neurosurge ry and Oncology, who did not recommend any further treatment of her large right-sided brain metastas is. She was started on Decadron, which has not really helped. She was also started on Keppra for s eizure prophylaxis. The patient and family have met with Hospice and on day of discharge, have decided that they would l dinorah to take her home under hospice care. PHYSICAL EXAM: VITAL SIGNS: On day of discharge, blood pressure 138/86, pulse of 81, respiratory r ate 18, O2 saturation 84% on 5 L. Temperature afebrile. GENERAL: Ill-appearing, unresponsive. LABS AND RADIOLOGY STUDIES: During this hospital stay, head CT done 12/02/2016, brain MRI done 11/23, lung biopsy done 12/03/2016, which revealed abundant necrotic tissue and fibrous tissue with chronic eosinophilic inflammation, hemosiderin depositions. DISCHARGE MEDICATIONS: Please refer to discharge medication reconciliation in [facility] for details. DISCHARGE INSTRUCTIONS: The patient will be discharged home with home care and hospice. The patien t's family understands the seriousness of her diagnosis and are accepting that her disease is likely fatal without any further treatment recommendations. Greater than 30 minutes were spent on the discharge of this patient. /[id number]/MODL
== END 2016-12-06 15:37 | disposition hospice, home (50) | DRG 54 ==
LOC: OBSVTOIN 15:54 → F3N 18:28
PROVIDERS: ADMIT Internal Medicine; ATTEND Internal Medicine
PROC: 0BB43ZX Excision of Right Upper Lobe Bronchus, Percutaneous Approach, Diagnostic (ICD-10-PCS; principal; 2016-12-03 12:43)
DX: C79.31 Secondary malignant neoplasm of brain (principal); G93.49 Other encephalopathy; G93.6 Cerebral edema; C34.90 Malignant neoplasm of unspecified part of unspecified bronchus or lung; R64 Cachexia; R47.01 Aphasia; C44.520 Squamous cell carcinoma of anal skin; C44.90 Unspecified malignant neoplasm of skin, unspecified; Z72.0 Tobacco use
CPT/HCPCS: 84134-90; 92526-GN; 92610-GN; 97162-GP; 97166-GO; A9585; G8978-GP-CM; G8979-GP-CK; G8980-GP-CN; G8987-GO-CM; G8988-GO-CJ; G8996-GN-CM; G8997-GN-CK; J1100; J1953; J2060; J2550; J2704; Q9967